=== PATIENT | male | born 1975 | race Caucasian/White ===

== ENCOUNTER 2017-01-28 20:47 | Emergency (ER) | payer OTHER ==
[2017-01-28 20:48] VITALS: BMI 31.6
[2017-01-28 20:52] VITALS: TEMP 97.6
[2017-01-28] MEDS ORDERED: HYDROmorphone 1 mg/ml ISec IVP STA (20:58)
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
[2017-01-29] MEDS ORDERED: TDAP Vaccine 0.5 mL Syr IM ONE (00:01)
[2017-01-29 00:28] VITALS: BP 120/63; PULSE 85; RESP 16; O2SAT 95
--- NOTE | 2017-01-29 11:02 | RAD ---
PROCEDURE: Radiographs of the Right Shoulder HISTORY: trauma COMPARISON: No prior. FINDINGS: BONES: Transverse fracture humeral neck, mildly displaced. There is fracture of the greater tuberosity. There is a small osseous fragment seen just superior to the humeral head which may represent a displaced fracture fragment. There is no glenoid fracture seen. JOINTS: Normal. Glenohumeral and acromioclavicular joints preserved. No osteoarthritis. SOFT TISSUES: Normal. OTHER FINDINGS: None. IMPRESSION: Comminuted proximal right humeral fracture without dislocation. Possible displaced intra-articular bony fragment.
== END 2017-01-29 00:27 | disposition home or self-care (01) ==
LOC: ED 20:47
DX: S42.211A Unspecified displaced fracture of surgical neck of right humerus, initial encounter for closed fracture (principal); V87.8XXA Person injured in other specified noncollision transport accidents involving motor vehicle (traffic), initial encounter; Y92.410 Unspecified street and highway as the place of occurrence of the external cause; Z23 Encounter for immunization
CPT/HCPCS: 73030; 90471; 90715; 96374; 96375; 99285; J1170; J1885